=== PATIENT | female | born 1985 | race Caucasian/White ===

== ENCOUNTER 2023-08-05 15:45 | Inpatient (IN) | payer SELFPAY ==
[2023-08-05 18:21] VITALS: BMI 22.1
[2023-08-05] MEDS ORDERED: Ondansetron PF 4 MG/2 ML Vial IVP PRN (20:07)
[2023-08-05] MEDS ORDERED: Pantoprazole 40 MG VIAL IVP SCH (20:45)
[2023-08-05] MEDS ORDERED: Atorvastatin Calcium 10 MG TAB PO SCH (21:00)
[2023-08-05] MEDS ORDERED: Famotidine/PF 20 mg/2ml Vial SLOW IVP SCH (21:00)
[2023-08-05] MEDS: Lactated Ringer's 1,000 ML IV SCH (21:18)
[2023-08-05] MEDS: Nicotine 14 MG PATCH TD SCH (21:19)
[2023-08-05] MEDS: Thiamine HCl 200 MG/2 ML VIAL SLOW IVP SCH (21:20)
[2023-08-05 22:36] LABS: Bilirubin Neg (Negative); Blood, Urine 150 (Negative); Glucose, Urine (Dipstick) Normal (Negative); Ketone, Urine 15 mg/dL (Negative); Leukocyte Negative (Negative); Nitrite Negative (Negative); Protein, Urine (Dipstick) 15 mg/dl (Neg-Trace); Specific Gravity, Urine 1.015 (1.005-1.030); Urobilinogen Normal mg/dL (Less than 2)
[2023-08-05 22:39] LABS: Clarity Clear (Clear)
[2023-08-05 23:09] LABS: Bacteria/HPF 2+ HPF (None Seen); RBC/HPF 0-3 HPF (0-3); Squamous Epithelial 0-3 HPF (0-3); WBC/HPF 0-3 HPF (0-3)
[2023-08-05] MEDS: Acetaminophen 325 MG TAB PO PRN (23:50)
[2023-08-06] MEDS ORDERED: cefTRIAXone\\ROCEPHIN 1 GM in Sodium Chloride 0.9% 100 ML IVPB SCH ×2 (00:15→02:45)
[2023-08-06 05:32] LABS: ALT (SGPT) 12 U/L (8-55); AST (SGOT) 19 U/L (5-34); Albumin 3.7 g/dL (3.5-5.0); Alkaline Phosphatase 54 U/L (40-110); Anion Gap 14 mmol/L (10-20); BUN (Urea Nitrogen) 25 mg/dL (7.0-18.7); Bilirubin, Total 1.1 mg/dL (0.2-1.2); Calc. Creatinine Clearance 95 mL/min (70-130); Calcium 8.5 mg/dL (7.8-10.44); Carbon Dioxide 23 mmol/L (22-29); Chloride 98 mmol/L (98-107); Estimated GFR 102; Globulin 2.1 g/dL (2.4-3.5); Glucose 116 mg/dL (70-105); Potassium 3.1 mmol/L (3.5-5.1); Protein, Total 5.8 g/dL (6.0-8.3); Sodium 132 mmol/L (136-145)
[2023-08-06 05:49] LABS: #Basophils 0.1 10x3/uL (0.0-0.2); #Eosinphils 0.1 10x3/uL (0.0-0.5); #Monocytes 0.8 10x3/uL (0.0-1.1); #Neutrophils 6.8 10x3/uL (1.5-8.4); %Basophils 0.6 % (0.0-2.0); %Eosinophils 0.9 % (0.0-6.0); %Lymphocytes 27.6 % (18.0-47.0); %Monocytes 7.8 % (0.0-10.0); %Neutrophils 62.7 % (40.0-75.0); Hematocrit 35.2 % (34.9-44.5); Hemoglobin 12.5 g/dL (12.0-15.5); Mean Corpuscular HGB CONC 35.5 g/dL (32.0-36.0); Mean Corpuscular Volume 92.9 fl (81.6-98.3); Mean Platelet Volume 10.8 fl (7.4-10.4); Platelet Count 257 10x3/uL (150-450); RBC Distribution Width 14.7 % (11.5-14.5); Red Blood Cell (RBC) Count 3.79 10x6/uL (3.90-5.03); White Blood Cell (WBC) Count 10.8 10x3/uL (3.5-10.5)
[2023-08-06] MEDS: Lactated Ringer's 1,000 ML IV SCH (06:30)
[2023-08-06] MEDS ORDERED: Electrolyte Replacement Protocol 1 EACH FS SCH (07:30)
[2023-08-06] MEDS ORDERED: Potassium Chloride 20 MEQ TAB PO SCH (08:00)
[2023-08-06] MEDS ORDERED: Magnesium 2 GM/50 ML(in water) 2 GM in Premix 1 BAG IVPB SCH (08:00)
[2023-08-06] MEDS ORDERED: Citalopram 20 MG TAB PO SCH (09:00)
[2023-08-06 09:47] LABS: Lipase 32 U/L (8-78)
[2023-08-06] MEDS: Bisoprolol Fumarate 5 MG TAB PO SCH (10:27)
[2023-08-06] MEDS: Guaifenesin DM 100-10/5 ML UDCUP PO PRN (10:28)
[2023-08-06] MEDS: Pantoprazole 40 MG VIAL IVP SCH (10:28)
[2023-08-06] MEDS: Folic Acid 1 MG TAB PO SCH (10:29)
[2023-08-06] MEDS: Citalopram 20 MG TAB PO SCH (10:29)
[2023-08-06] MEDS: Enoxaparin 40 MG (0.4 mL) SYRINGE SC SCH (10:29)
[2023-08-06] MEDS: Acetaminophen 325 MG TAB PO PRN (10:32)
[2023-08-06 18:17] LABS: Legionella Urinary Ag Negative (Negative); Strep pneumo Urine Ag NEGATIVE (NEGATIVE)
[2023-08-06] MEDS ORDERED: Cephalexin 500 MG CAP PO SCH (21:00)
[2023-08-06] MEDS ORDERED: Atorvastatin Calcium 10 MG TAB PO SCH (21:00)
[2023-08-06] MEDS: Thiamine HCl 200 MG/2 ML VIAL SLOW IVP SCH (21:23)
[2023-08-06] MEDS: Nicotine 14 MG PATCH TD SCH (21:29)
[2023-08-07 05:43] LABS: #Basophils 0.1 10x3/uL (0.0-0.2); #Eosinphils 0.1 10x3/uL (0.0-0.5); #Monocytes 0.6 10x3/uL (0.0-1.1); #Neutrophils 4.1 10x3/uL (1.5-8.4); %Basophils 0.7 % (0.0-2.0); %Eosinophils 1.4 % (0.0-6.0); %Lymphocytes 37.1 % (18.0-47.0); %Monocytes 7.6 % (0.0-10.0); %Neutrophils 52.9 % (40.0-75.0); Hematocrit 38.9 % (34.9-44.5); Hemoglobin 13.7 g/dL (12.0-15.5); Mean Corpuscular HGB CONC 35.2 g/dL (32.0-36.0); Mean Corpuscular Hemoglobin 33.1 pg (27.0-33.0); Mean Platelet Volume 11.5 fl (7.4-10.4); Platelet Count 251 10x3/uL (150-450); RBC Distribution Width 14.4 % (11.5-14.5); Red Blood Cell (RBC) Count 4.14 10x6/uL (3.90-5.03); White Blood Cell (WBC) Count 7.7 10x3/uL (3.5-10.5)
[2023-08-07] MEDS ORDERED: cefTRIAXone\\ROCEPHIN 1 GM in Sodium Chloride 0.9% 100 ML IVPB SCH (06:00)
[2023-08-07 07:56] LABS: ALT (SGPT) 12 U/L (8-55); AST (SGOT) 17 U/L (5-34); Albumin 3.9 g/dL (3.5-5.0); Alkaline Phosphatase 55 U/L (40-110); Anion Gap 14 mmol/L (10-20); BUN (Urea Nitrogen) 7 mg/dL (7.0-18.7); Bilirubin, Direct 0.2 mg/dL (0.1-0.3); Bilirubin, Total 0.6 mg/dL (0.2-1.2); Calc. Creatinine Clearance 115 mL/min (70-130); Calcium 8.8 mg/dL (7.8-10.44); Carbon Dioxide 24 mmol/L (22-29); Chloride 99 mmol/L (98-107); Estimated GFR 116; Glucose 100 mg/dL (70-105); Potassium 3.1 mmol/L (3.5-5.1); Protein, Total 6.2 g/dL (6.0-8.3); Sodium 134 mmol/L (136-145)
[2023-08-07] MEDS ORDERED: Magnesium 2 GM/50 ML(in water) 2 GM in Premix 1 BAG IVPB SCH (09:00)
[2023-08-07] MEDS ORDERED: Potassium Chloride 20 MEQ TAB PO SCH (09:00)
[2023-08-07] MEDS: Pantoprazole 40 MG VIAL IVP SCH (09:09)
[2023-08-07] MEDS: Enoxaparin 40 MG (0.4 mL) SYRINGE SC SCH (09:09)
[2023-08-07] MEDS: Bisoprolol Fumarate 5 MG TAB PO SCH (09:10)
[2023-08-07] MEDS: Citalopram 20 MG TAB PO SCH (09:10)
[2023-08-07] MEDS: Folic Acid 1 MG TAB PO SCH (09:10)
[2023-08-07] MEDS: Acetaminophen 325 MG TAB PO PRN (09:41)
[2023-08-07] MEDS: Guaifenesin DM 100-10/5 ML UDCUP PO PRN (09:41)
[2023-08-07 12:08] VITALS: BP 120/82; TEMP 98.1
[2023-08-07 13:48] LABS: Free T4 (Free Thyroxine) 0.99 ng/dL (0.70-1.48); Thyroid Stimulating Hormone 1.5869 uIU/mL (0.35-4.94)
[2023-08-08 01:00] LABS: Campy jejuni + coli by PCR Negative (Negative); STEC Shiga Toxin 1+2 Negative (Negative); Salmonella spp. by PCR Negative (Negative); Shigella spp + EIEC by PCR Negative (Negative)
== END 2023-08-07 15:38 | disposition home or self-care (01) | DRG 683 ==
LOC: CSHTELE 17:12 → OBSVTOIN 20:07
PROVIDERS: ADMIT Internal Medicine; ATTEND Family Medicine
DX: N17.9 Acute kidney failure, unspecified (principal); E87.1 Hypo-osmolality and hyponatremia; N39.0 Urinary tract infection, site not specified; I10 Essential (primary) hypertension; E78.5 Hyperlipidemia, unspecified; F41.9 Anxiety disorder, unspecified; F17.210 Nicotine dependence, cigarettes, uncomplicated; A08.4 Viral intestinal infection, unspecified; E86.0 Dehydration; K44.9 Diaphragmatic hernia without obstruction or gangrene; E86.1 Hypovolemia; E87.6 Hypokalemia; Z71.6 Tobacco abuse counseling; Z79.899 Other long term (current) drug therapy; Z98.890 Other specified postprocedural states; Z88.2 Allergy status to sulfonamides
CPT/HCPCS: 36415; 71250; 74177; 80048; 80053; 80076; 83690; 83735; 84439; 84443; 85025; 87086; 87449; 87505; 87899; C9113; J0696; J1650; J3411; J3475; J3490; J7120; S0028